=== PATIENT | female | born 1990 | race Caucasian/White ===

== ENCOUNTER → 2022-02-10 | Outpatient (CLI) | payer BC | LOC: DIA.ED 13:13 | DX: O24.419 Gestational diabetes mellitus in pregnancy, unspecified control (principal) | CPT/HCPCS: G0108 ==

== ENCOUNTER 2022-04-15 04:24 | Inpatient (IN) | payer BC ==
[~2022-04-15] VITALS: Ht 167.6 cm; Wt 98.2 kg
[2022-04-15] VITALS (27 sets, daily range): BP systolic 111–141; BP diastolic 58–94; PULSE 72–125; TEMP 97.9–98.1
--- NOTE | 2022-04-15 04:30 | NUR ---
G1 at 39 weeks and 5 days arrives to unit with complaint of contractions since 0230. Pt reports feeling strong contractions every 2-3 minutes. Denies LOF or vaginal bleeding. Denies headaches, blurry vision, or RUQ pain. Reports feeling good movement. Clean gown on. Pt oriented to room, bed in low and locked position, call light within reach. US and toco explained and applied. Admission assessment started. Vitals obtained. SVE 5/90/-2, vertex position, membranes intact. Pt appears to be uncomfortable with contractions. Reviewed plan of care with patient and spouse.
--- NOTE | 2022-04-15 05:15 | NUR ---
18g IV started in right forearm. Admission labs obtained off IV site. Lactated ringers infusing to gravity. Consents reviewed and signed with patient and spouse. Pt requesting susannah. HARRIET Christianson called, will come to bedside.
[2022-04-15 05:33] LABS: BASO # 0.1 K/mm3 (0.0-0.2); BASO % 0.4 % (0.0-2.0); EOS # 0.1 K/mm3 (0.0-0.7); EOS % 0.5 % (0.0-4.0); GRAN # 12.8 K/mm3 (1.4-6.5); GRAN % 78.8 % (42.2-75.2); HEMATOCRIT 41.5 % (37.0-47.0); HEMOGLOBIN 13.5 g/dl (12.5-16.0); LYMPH # 2.3 K/mm3 (1.2-3.4); LYMPH % 14.1 % (20.0-51.0); MEAN CELL VOLUME 88 fl (80.0-100.0); MEAN CORPUSCULAR HEMOGLOBIN 29 pg (27-31); MEAN CORPUSCULAR HGB CONC 33 g/dl (33.0-37.0); MEAN PLATELET VOLUME 12.7 fl (7.4-10.4); MONO # 0.9 K/mm3 (0.1-0.6); MONO % 5.6 % (1.7-9.3); PLATELET COUNT 184 K/mm3 (130-400); RED BLOOD COUNT 4.73 M/mm3 (4.10-5.30); REDCELL DISTRIBUTION WIDTH-CV 13.2 % (11.5-14.5)
--- NOTE | 2022-04-15 05:45 | NUR ---
0520 - Monitors off so patient can ambulate around room. Category 1 FHR tracing. 0530 - HARRIET Christianson at bedside. Monitors back on. Pt positioned to sitting on edge of bed. Epidural procedure, risks, and benefits reviewed with patient, verbalized understanding. 0540 - Difficulty tracing FHR due to patients positioning. Maternal HR tracing confirmed with pulse ox. 0542 - Single shot by HARRIET Christianson. Pt denies any adverse reactions. 0548 - Pt positioned to wedge left for comfort. Safety precautions reviewed. Call light within reach, bed in low and locked position. See anesthesia record.
--- NOTE | 2022-04-15 05:55 | NUR ---
Epidural pump alarming. Meghan ANIMAL CARE TAKER to bedside to evaluate, need to replace epidural due to occlusion and not being able to flush. Pt positioned back to sitting on edge of bed. Maternal HR tracing due to positioning, confirmed by pulse ox. Pt tolerated well. 0610 - Repositioned back to wedge left.
[2022-04-15] MEDS ORDERED: PRENATAL TABLET PO (05:57)
[2022-04-15] MEDS ORDERED: UNISOM25 MG PO (05:57)
[2022-04-15] MEDS ORDERED: PROAIR HFA0.09 MG/AC IH (05:58)
--- NOTE | 2022-04-15 08:45 | NUR ---
0845 - MD JOSH AT BEDSIDE. SVE PERFORMED BY MD JOSH. PATIENT COMPLETE. 0900 - PATIENT PUSHING WITH CONTRACTIONS. GOOD MATERNAL EFFORT. 0915 - MD JOSH AT BEDSIDE. PATIENT CONTINUES PUSHING WITH CONTRACTIONS. GOOD MATERNAL PUSHING EFFORT. 0930 - MD JOSH AT BEDSIDE. PATIENT REPOSITIONED. PATIENT PUSHING WITH CONTRACTIONS. NURSERY RN AT BEDSIDE. 0948 - SPONTANEOUS DELIVERY OF BABY. HEAD FOLLOWED BY BODY. NURSERY RN ASSUMES CARE OF . 0952 - SPONTANEOUS DELIVERY OF INTACT PLACENTA. FUNDAL MASSAGE PERFORMED BY . PITOCIN BOLUS INITIATED. 0955 - MD JOSH PERFORMS REPAIR OF 2ND DEGREE TEAR. CARE ONGOING.
[2022-04-15] MEDS ORDERED: MOTRIN 800800 MG/TAB PO (13:07)
[2022-04-16 02:00] VITALS: BP 119/83; PULSE 87; TEMP 97.6
[2022-04-16 07:10] VITALS: BP 119/77; PULSE 90; TEMP 98
--- NOTE | 2022-04-16 09:36 | NUR ---
Initial visit; Family thanked Collar Closer Lockstitch for offering congratulations and God's blessings for the of their son. Collar Closer Lockstitch thanked family for choosing [facility].
--- NOTE | 2022-04-16 09:38 | NUR ---
Initial visit; Parents thanked Dialysis Equipment Technician for offering congratulations and God's blessings for the of their son. Dialysis Equipment Technician thanked family for choosing [place].
--- NOTE | 2022-04-16 14:27 | NUR ---
PER , PT IS TO CALL AND SCHEDULE APPOINTMENT AT [facility] FOR THIS THURSDAY TO ASSESS CIRCUMCISION SITE. WILL BE SEEN AND A REFERRAL SENT TO OUTPATIENT UROLOGY WITHIN 10 DAYS FOR EVALUATION OF HYPOSPADIAS. NO ACTIVE BLEEDING AT SITE RIGHT NOW.
[2022-04-16 15:30] VITALS: BP 134/76; PULSE 93; TEMP 98.6
--- NOTE | 2022-04-16 15:48 | NUR ---
PER PT REPORT, OUTPATIENT CLINIC VISIT IS SCHEDULED FOR THURSDAY AT [facility] PER RECOMMENDATION. PT ALSO HAS AN OUTPATIENT HEARING SCREEN SCHEDULED DUE TO FAILED FIRST ATTEMPT. PER MOTHER REPORT IS GOING "GREAT" AND SHE IS READY TO GET HOME AND "SLEEP IN HER OWN BED". WILL PROCEED WITH DISCHARGE PER PT REQUEST AND PHYSICIAN ORDER.
--- NOTE | 2022-04-16 17:43 | NUR ---
ALL DC PAPERWORK REVIEWED AND UNDERSTOOD. THOROUGH EDUCATION PROVIDED ON HYPOSPADIAS/CIRCUMCISION SITE CARES, AND TO RETURN TO ER IF SITE BEGINS BLEEDING. PT AGREEABLE WITH DC PLAN OF CARE AND ALL FOLLOW UP APPOINTMENTS. ALL BELONGINGS ACCOUNTED FOR. PT BEGINS PACKING UP ROOM AND THIS TIME AND IS EDUCATED TO NOTIFY STAFF WHEN IN CAR SEAT AND I WILL ASSESS AND ESCORT OFF OF UNIT.
== END 2022-04-16 18:20 | disposition home or self-care (01) | DRG 807 ==
LOC: LDRO 04:24 → OB 04:53 → LDR 04:53 → OB 12:28
PROVIDERS: Obstetrics & Gynecology; ADMIT Obstetrics & Gynecology
PROC: 10E0XZZ Delivery of Products of Conception, External Approach (ICD-10-PCS; principal; 2022-04-15)
PROC: 0KQM0ZZ Repair Perineum Muscle, Open Approach (ICD-10-PCS; 2022-04-15)
DX: O24.420 Gestational diabetes mellitus in childbirth, diet controlled (principal); Z37.0 Single live birth; O99.344 Other mental disorders complicating childbirth; F41.9 Anxiety disorder, unspecified; O99.52 Diseases of the respiratory system complicating childbirth; J45.909 Unspecified asthma, uncomplicated; O70.1 Second degree perineal laceration during delivery; Z3A.39 39 weeks gestation of pregnancy
CPT/HCPCS: J2795; J7120

== ENCOUNTER 2023-09-08 12:32 | Inpatient (IN) | payer OTHER ==
[2023-09-08] VITALS (14 sets, daily range): BP systolic 95–130; BP diastolic 61–78; PULSE 75–112; TEMP 97.6–97.8
[~2023-09-08] VITALS: Ht 167.6 cm; Wt 102.7 kg
[~2023-09-08 12:32] MED LIST: MOTRIN 800800 MG/TAB PO; PRENATAL TABLET PO; PROAIR HFA0.09 MG/AC IH; UNISOM25 MG PO
--- NOTE | 2023-09-08 12:42 | NUR ---
PATIENT ARRIVED ON UNIT, AMBULATORY WITH CONCERNS FOR CONTRACTIONS SINCE 9 AM THIS MORNING. PATIENT DENIES LEAKING OF FLUID OR VAGINAL BLEEDING AND REPORTS NORMAL MOVEMENT. EFM AND TOCO MONITOR STARTED. VITAL SIGNS WITHIN NORMAL LIMITS. SVE DONE 5-. DR. MORENO NOTIFIED.
--- NOTE | 2023-09-08 13:00 | NUR ---
DIFFICULT TRACING FHR DUE TO MATERNAL ACTIVITY. RN AT BEDSIDE.
[2023-09-08 13:20] LABS: BASO % 0.3 % (0.0-2.0); EOS # 0.1 K/mm3 (0.0-0.7); EOS % 0.6 % (0.0-4.0); GRAN # 7.9 K/mm3 (1.4-6.5); GRAN % 73.3 % (42.2-75.2); HEMATOCRIT 39.8 % (37.0-47.0); HEMOGLOBIN 12.9 g/dl (12.5-16.0); LYMPH # 2.2 K/mm3 (1.2-3.4); LYMPH % 20.3 % (20.0-51.0); MEAN CELL VOLUME 85 fl (80.0-100.0); MEAN CORPUSCULAR HEMOGLOBIN 27 pg (27-31); MEAN CORPUSCULAR HGB CONC 32 g/dl (33.0-37.0); MEAN PLATELET VOLUME 12.2 fl (7.4-10.4); MONO # 0.5 K/mm3 (0.1-0.6); PLATELET COUNT 216 K/mm3 (130-400); REDCELL DISTRIBUTION WIDTH-CV 13.2 % (11.5-14.5)
--- NOTE | 2023-09-08 13:31 | NUR ---
Sudheer JOY SIDEHAND AT THE BEDSIDE FOR EPIDURAL PLACEMENT PER PATIENTS REQUEST. DIFFICULT TRACING FHR DUE TO POSITION AND ACTIVITY. SEE ANESTHESIA RECORD FOR DETAILS.
--- NOTE | 2023-09-08 13:54 | NUR ---
1354- DR. MORENO AT BEDSIDE. 1355- SVE AND AROM PER DR. MORENO. 1400- PATIENT SET UP FOR DELIVERY. ADDITIONAL STAFF CALLED TO THE BEDSIDE. 1404- PATIENT STARTED PUSHING. DIFFICULT FHR TRACING. RN AND MD REMAIN AT BEDSIDE PUSHING WITH PATIENT AND FREQUENT ATTEMPTS TO ADJUST EFM. 1413- OF VIABLE MALE . PLACED ON MOMS ABDOMEN. CORDS CLAMPED AND CUT. CARE OF GIVEN TO NURSERY RN AT THE BEDSIDE. 1416- OF PLACENTA. PITOCIN STARTED PER ORDER IN PROTOCOL. FUNDUS FIRM AND LOCHIA WNL.
[2023-09-08] MEDS ORDERED: MOTRIN 800800 MG/TAB PO (14:59)
[2023-09-09 04:15] VITALS: BP 115/80; PULSE 81; TEMP 97.8
[2023-09-09 07:38] VITALS: BP 115/70; PULSE 77; TEMP 97.9
--- NOTE | 2023-09-09 09:40 | NUR ---
Initial visit; Parents thanked Feather Drying Machine Operator for offering congratulations and God's blessings for the of their son. Feather Drying Machine Operator thanked family for choosing our hospital.
--- NOTE | 2023-09-09 09:41 | NUR ---
Initial visit attempt; Family resting. Quality Assurance Supervisor Chassis left card offering congratulations and God's blessings for the of their daughter and information regarding the availability of Spiritual Care for their family.
[2023-09-09 16:00] VITALS: BP 110/60; PULSE 70; TEMP 98.4
[2023-09-09 18:45] VITALS: BP 118/64; PULSE 64; TEMP 98
== END 2023-09-09 19:48 | disposition home or self-care (01) | DRG 807 ==
LOC: LDRO 12:32 → LDR 12:53 → OB 19:00
PROVIDERS: ADMIT Obstetrics & Gynecology
PROC: 10E0XZZ Delivery of Products of Conception, External Approach (ICD-10-PCS; principal; 2023-09-08)
PROC: 0KQM0ZZ Repair Perineum Muscle, Open Approach (ICD-10-PCS; 2023-09-08)
PROC: 10907ZC Drainage of Amniotic Fluid, Therapeutic from Products of Conception, Via Natural or Artificial Opening (ICD-10-PCS; 2023-09-08)
DX: O99.344 Other mental disorders complicating childbirth (principal); Z37.0 Single live birth; Z3A.39 39 weeks gestation of pregnancy; O99.214 Obesity complicating childbirth; J45.909 Unspecified asthma, uncomplicated; O99.52 Diseases of the respiratory system complicating childbirth; O76 Abnormality in fetal heart rate and rhythm complicating labor and delivery; F41.9 Anxiety disorder, unspecified; O70.1 Second degree perineal laceration during delivery
CPT/HCPCS: J2590; J2795; J7120